=== PATIENT | male | born 1980 | race Caucasian/White ===

== ENCOUNTER 2022-10-31 08:27 | Outpatient (CLI) | payer OTHER, SELFPAY ==
[2022-10-31 09:08] LABS: Basophils Absolute Auto 0.1 K/mm3 (0.0-0.1); Basophils Percent Auto 0.7 % (0.2-1.2); Eosinophils Absolute Auto 0.1 K/mm3 (0-0.3); Eosinophils Percent Auto 0.9 % (0-4.4); Hematocrit 47.3 % (42.0-52.0); Hemoglobin 15.8 g/dL (14.0-18.0); Immature Granulocyte Absolute 0.01 K/mm3 (0.00-0.031); Immature Granulocyte Percent A 0.1 % (0-0.5); Immature Platelet Fraction Pct 21.5 % (0.9-11.2); Lymphocytes Percent Auto 15.8 % (18.3-44.2); Mean Corpuscular HGB Conc 33.4 g/dl (32-36); Mean Corpuscular Hemoglobin 29.1 pg (26-34); Mean Corpuscular Volume 87.1 fl (80-100); Mean Platelet Volume 14.1 fl (7.4-10.4); Monocytes Absolute Auto 0.6 K/mm3 (0.1-0.6); Monocytes Percent Auto 8.4 % (2.6-8.5); Neutrophils Absolute Auto 5.6 K/mm3 (1.3-6.7); Neutrophils Percent Auto 74.1 % (45.5-73.1); Platelet Count Result 122 k/mm3 (150-375); Red Blood Count 5.43 M/mm3 (4.6-6.20); Red Cell Distribution Width 13.2 % (11.5-14.5); White Blood Count 7.6 K/mm3 (4.5-10.0)
[2022-10-31 15:11] LABS: Alanine Aminotransferase 33 U/L (6-50); Albumin Level 4.2 g/dL (3.5-5.1); Alkaline Phosphatase 78 U/L (38-126); Amylase 71 U/L (30-110); Anion Gap 6 mmol/L (8-16); Aspartate Amino Transferase 26 U/L (17-59); Bilirubin,Total 0.9 mg/dL (0.2-1.3); Blood Urea Nitrogen 10 mg/dL (9-20); Calcium 8.3 mg/dL (8.4-10.2); Carbon Dioxide 28 mmol/L (22-30); Chloride 104 mmol/L (98-107); Estimated Glomerular Filt Rate > 60; Glucose 99 mg/dL (65-110); Lipase 60 U/L (23-300); Potassium 3.8 mmol/L (3.4-5.0); Sodium 138 mmol/L (137-145)
== END 2022-10-31 08:28 | disposition home or self-care (01) ==
PROVIDERS: PCP Family Medicine; Visit Provider Physician Assistant
DX: R10.13 Epigastric pain (principal); R10.11 Right upper quadrant pain
CPT/HCPCS: 36415; 80053; 82150; 83690; 85025; 85055

== ENCOUNTER → 2022-11-01 09:45 | Outpatient (CLI) | payer OTHER, SELFPAY ==
--- NOTE | ~2022-11-01 | US_ITS ---
Limited Abdominal Sonogram: Real-time sonographic imaging of the right upper quadrant was performed. Clinical History: Epigastric pain Findings: The liver appears normal with no evidence of mass lesion or bile duct dilatation. Main por hodan vein demonstrates normal direction of flow. The gallbladder is partially distended, and contains echogenic gallstone. Mild gallbladder wall thickening may be due to partial distention. The common bi le duct measures 5 mm. The visualized pancreas, aorta, and IVC are unremarkable. Impression: Cholelithiasis. Mild gallbladder wall thickening may be due to partial distention. Correlate clinically for acute cho lecystitis. Reviewed, dictated and finalized at location . Impression: Cholelithiasis. Mild gallbladder wall thickening may be due to partial distention. Correlate cl inically for acute cholecystitis.
== END ==
PROVIDERS: PCP Family Medicine; Visit Provider Physician Assistant
DX: R10.11 Right upper quadrant pain (principal); R10.13 Epigastric pain; K80.20 Calculus of gallbladder without cholecystitis without obstruction
CPT/HCPCS: 76705

== ENCOUNTER 2022-11-15 00:34 | Day surgery (SDC) | payer OTHER, SELFPAY ==
[2022-11-08 11:24] VITALS: BMI 42.5
--- NOTE | 2022-11-08 11:30 | PC.NURSE ---
Report to the Outpatient Waiting Room, entrance under the green pavilion located off [facility], at time 8:00 on date 11/15/22. Planned Procedure Time: 10:00. Time changes happen often and if your time is changed the preop area will call you the afternoon before. - You and your visitor will be asked to self-screen and do not enter if you have any COVID symptoms. - Only one visitor is requested with a max of two and NO children visitors are allowed at this time. - The patient visitor may be requested to leave or wait in car when not with patient due to distancing restrictions. - A mask is optional within the hospital at this time. Patients may have clear liquids (water, carbonated beverages, clear teas, apple juice) until 3 hours prior to surgery with a maximum of 20 ounces. - No food from midnight until time of surgery Take the following medications with a SIP of water the morning of surgery: SERTRALINE, ANTIBIOTIC IF STILL TAKING DO NOT STOP ANY OF YOUR OTHER PRESCRIPTION MEDICATIONS PRIOR TO SURGERY EXCEPT THE FOLLOWING Medications to discontinue per physician: N/A Date to take last dose: N/A Please no make-up, nail portuguese, hairspray, perfume, deodorant, or body powder the day of surgery. No jewelry (including any body piercings) or valuables the day of surgery, leave them at home. Please take a shower or bath the night before, or the morning of, surgery with an antibacterial soap (HIBICLENS). Wear comfortable, loose fitting clothing. - Jewelry must be removed prior to entering the operating room. Rings and piercings that are not removed may be cut off. - The hospital will not accept responsibility for valuables. - Please leave all valuables, including medications, at home the day of surgery. If you are going home after surgery, a licensed m48/m60 tank driver must drive you home. - NO public transportation without another adult if you receive anesthesia. - We recommend that an adult stay with you for 24 hours following discharge. - We also recommend that you do not drive, make important decision, drink alcoholic beverages, or take any drugs that were not prescribed by your health care provider for at least 24 hours after your discharge time. Follow any additional instructions given to you from your surgeon. If you or anyone in your household have experienced Covid symptoms in the past week, please notify your surgeon or the nurse liaison at the phone number below for possible testing. Telephone instructions given to EVER FLETCHER and asked if any additional questions and then verbalized understanding. Patient advised to call surgeon office or pre surgery nurse liaison [phone] if any additional questions.
--- NOTE | 2022-11-14 13:13 | WPDANESEPPF ---
Anes - Initial Pre Proc Eval Procedure: Operation Date: 11/15/22 10:00 Proposed Procedures p Laparoscopic Cholecystectomy, Davinci Assisted, Possible Open - Santana Carrillo DO Date/Time: 11/14/22 13:13 Surgeon: Santana Carrillo DO Pre Op Diagnosis: symptomatic cholelithiasis Patient Data Age: 41 Gender: M Height: 1.98 m Weight: 166.95 kg Allergies Allergy/AdvReac Type Severity Reaction Status Date / Time No Known Allergies Allergy Verified 11/15/22 08:29 Home Medications Medication Instructions Recorded Confirmed Type sildenafil 100 mg tablet (Viagra) 100 mg PO DAILY PRN sexual 01/11/22 11/08/22 Rx activity #30 tabs sertraline 50 mg tablet See Rx Instructions .Route 03/17/22 11/15/22 Rx .COMPLEX #90 tabs ciprofloxacin HCl 500 mg tablet 500 mg PO Q12H #14 tabs 11/02/22 11/15/22 Rx metronidazole 500 mg tablet 500 mg PO Q8H #21 tabs 11/02/22 11/15/22 Rx Patient hx anesthesia problems: none Family hx anesthesia problems: none Results Review: All pre-operative results and documents have been reviewed as part of the pre-operative evaluation. [facility] Past Medical History Medical History (Updated 11/14/22 @ 13:14 by Yossi Zepeda MD) Anxiety Erectile dysfunction Morbid obesity with BMI of 40.0-44.9, adult XIN (obstructive sleep apnea) Surgical History Surgical History History of tympanostomy Family History Family History Father Heart disease Hypertension Mother Breast cancer Pancreatic cancer Father Hypertension Social History Social History Smoking status: Never smoker Second hand tobacco smoke exposure: No Alcohol intake: never Substance use: never Substance use type: does not use Living arrangements: with family Occupation/Education: occupation Gender identity (if verbalized by the patient): Male Sexual Orientation (if Verbalized by the Patient): Straight or Heterosexual Spiritual care concerns: No Anes - Eval Final PreProcedure Day of Procedure 04/04/23 13:13 Patient weight: morbidly obese Heart: regular rate and rhythm Lungs: clear to auscultation and normal air movement Airway: Mallampati scale class II Neurological: alert and oriented Last oral intake: >/= 8 hours ASA classification: III Emergent: no Anesthetic plan: proceed Anesthesia type and monitoring: general ETT Results Review: All pre-operative results and documents have been reviewed as part of the pre-operative evaluation. Informed Consent: The patient's anesthetic plan and its attendant risks and benefits were discussed with the patient/family/POA. Questions were solicited and answers provided to the satisfaction of the patient/family/POA.
[2022-11-15] VITALS (9 sets, daily range): BP systolic 132–160; BP diastolic 72–96; PULSE 79–92; RESP 12–20; TEMP 36.1–36.3; O2SAT 97–100
[2022-11-15] MEDS: LACTATED RINGERS 1,000 ML 30 ML IV CONT ×2 (08:44→12:26)
[2022-11-15] MEDS: INDOCYANINE GREEN 25 MG VIAL WITH DILUENT 3.75 MG IV PUSH (08:50)
[2022-11-15] MEDS: ACETAMINOPHEN 500 MG TABLET 1000 MG PO (08:55)
[2022-11-15] MEDS: KETOROLAC 15 MG/ML VIAL (*BKC) IV PUSH (09:39)
--- NOTE | 2022-11-15 10:00 | WPDHPUPDATE1 ---
History and Physical Update Update Date/Time: 11/15/22 10:00 History and Physical has been reviewed, including an updated exam of the patient. There are NO changes in the patient's condition. Risks, benefits, and alternatives have been discussed and questions answered. Patient agrees to proceed with procedure.
[2022-11-15] MEDS: ceFAZolin 3 GM/D5W 100 ML 100 ML IVPB (10:28)
[2022-11-15] MEDS: BUPIVACAINE/EPINEPHRINE 0.5% 50 ML VIAL 30 ML INFILTRATE (11:12)
--- NOTE | 2022-11-15 12:29 | W.PM.PROC2 ---
Procedure Note - Detailed Date of Procedure 11/15/22 Pre-op Diagnosis symptomatic cholelithiasis Post-op Diagnosis Other (Chronic calculous cholecystitis, gallbladder hydrops) Procedure Performed 1. Laparoscopic cholecystectomy with cholangiography, da Ifeanyi assisted 2. Interpretation of cholangiography Surgeon Santana Carrillo, DO Anesthesia General and Local (0.5% bupivacaine) Indications This is a 41 year old man who presented with episode upper abdominal pain. A gallbladder ultrasound was obtained as an outpatient which showed evidence of cholelithiasis mild gallbladder wall thickening. The patient's symptoms had resolved and he was maintaining a low-fat diet. Discussions were made with the patient about treatment options and decision was made to proceed with laparoscopic cholecystectomy, da Ifeanyi assisted. Findings Robotic assisted laparoscopic cholecystectomy was performed. The gallbladder had evidence of chronic cholecystitis with gallbladder wall thickening and pericholecystic adhesions. The gallbladder was tense and difficult to grasp, therefore it was aspirated with a laparoscopic aspirating needle. About 100 mL clear mucus bile was aspirated. There were gallstones within the gallbladder. The cystic duct appeared normal in size. No other significant abnormalities were noted. The gallbladder was removed and sent to the lab for pathology. Indocyanine green was used to help identify the biliary anatomy. The gallbladder itself was not filling up with indocyanine green with the near infrared imaging, but once I dissected further down onto the neck of the gallbladder I was able to see the cystic duct and common bile duct with the imaging. Description of Procedure Procedure as well as risks, benefits, and alternatives were discussed with the patient. Written consent was obtained and placed in chart prior to procedure. 1.5 mL of indocyanine green was given intravenously in preop. Patient was brought back to surgical suite. He was placed supine on operating table. Time-out was done to confirm patient and procedure. He was then intubated by the anesthesia department. His abdomen was then prepped and draped in sterile fashion using chlorhexidine prep. 0.5% bupivacaine was infiltrated locally at the site of each port placement. An 8 mm incision was made just superior to the umbilicus and a 5 mm Optiview trocar was then advanced through the abdominal layers under direct visualization. Once inside the abdominal cavity, carbon dioxide insufflation was used to create a pneumoperitoneum. The camera was inserted and the abdomen was inspected. No mediated abnormalities were noted. The patient was placed in 10? reverse Trendelenburg position and rotated 10? to the left. Two 8 mm incisions were made in the right lateral abdomen and 2 8 mm trocars were inserted under direct visualization. A 12 mm incision was made in the left lateral abdomen and a 12 mm trocar was inserted under direct visualization. The 5 mm Optiview trocar was then removed and another 8 mm trocar was inserted in its place. The robotic arms were then brought up to the patient's bedside and secured to each port. The camera and instruments were inserted. I then moved over to the robotic consult to take control of the camera and instruments. The gallbladder was grasped at the fundus and retracted cephalad. The infundibulum of the gallbladder was then grasped and retracted laterally. Hook electrocautery was then used to carefully dissect around the neck of the gallbladder. The cystic duct was identified and a window was created around it using hook electrocautery. The cystic artery was also identified and a window was created behind it using hook electrocautery. Critical view of safety was identified visualizing the cystic duct running directly into the neck of the gallbladder and the cystic artery running directly into the wall the gallbladder. The camera view was switched to firefly m
--- NOTE | 2022-11-15 12:58 | SUR.PHASEI ---
1258: Simple mask removed.
[2022-11-15] MEDS: ONDANSETRON INJ 4 MG/2 ML VIAL IV PUSH (13:30)
[2022-11-15] MEDS: HALOPERIDOL LACTATE 5 MG/ML VIAL 1 MG IV PUSH (13:54)
[2022-11-15] MEDS: SCOPOLAMINE 1.5 MG PATCH TRANSDERM (13:55)
[2022-11-15] MEDS: oxyCODONE HCL (*CRX) 5 MG TAB IR PO (14:12)
== END 2022-11-15 14:56 | disposition home or self-care (01) ==
PROVIDERS: PCP Family Medicine; Visit Provider Surgery
PROC: 0FT44ZZ Resection of Gallbladder, Percutaneous Endoscopic Approach (ICD-10-PCS; CPT 47562; principal; 2022-11-15 10:00)
DX: K80.00 Calculus of gallbladder with acute cholecystitis without obstruction (principal); K82.1 Hydrops of gallbladder; G47.33 Obstructive sleep apnea (adult) (pediatric); F41.9 Anxiety disorder, unspecified; N52.9 Male erectile dysfunction, unspecified; E66.01 Morbid (severe) obesity due to excess calories; Z68.41 Body mass index [BMI] 40.0-44.9, adult
CPT/HCPCS: 47563; 74300; S2900; 36415; 86850; 86900; 86901; 88304; A9270; J0330; J0690; J1100; J1170; J1630; J1885; J2250; J2405; J2704; J2710; J3010; J7030; J7120

== ENCOUNTER 2023-05-22 07:00 | Outpatient (NON) | payer OTHER, SELFPAY | END 2023-05-22 07:01 | disposition home or self-care (01) | LOC: ANHLAB 05-23 12:08 | PROVIDERS: PCP Family Medicine; Visit Provider Nurse Practitioner | DX: L72.0 Epidermal cyst (principal) | CPT/HCPCS: 88304 ==

== ENCOUNTER 2023-08-16 17:54 | Emergency (ER) | payer OTHER, SELFPAY ==
[2023-08-16 18:03] VITALS: BP 147/89; PULSE 90; RESP 18; TEMP 36.9; O2SAT 100
--- NOTE | 2023-08-16 18:59 | ED.SKABFB ---
HPI - Skin/Abscess/Foreign Bdy General Chief complaint: Skin/Abscess/Foreign Body Stated complaint: bump on left lower leg Time Seen by Provider: 08/16/23 19:00 Source: patient Mode of arrival: ambulatory Limitations: no limitations History of Present Illness HPI narrative: 42-year-old male presents with complaint of reddened bump to left lower extremity for unknown period of time. Patient reports noticed today, on palpation area is tender. No other symptoms. Wanted to make sure he did not have infection. All systems reviewed and negative except as noted above. Related Data Allergies Allergy/AdvReac Type Severity Reaction Status Date / Time No Known Allergies Allergy Verified 08/16/23 18:04 Review of Systems Review of Systems: CONSTITUTIONAL: Denies fever, chills, or sweats. EYES: Denies visual changes, redness, or discharge. ENT: Denies rhinorrhea, congestion, sore throat, or otalgia. CARDIOVASCULAR: Denies chest pain, palpitations, or edema. RESPIRATORY: Denies cough or dyspnea. GASTROINTESTINAL: Denies abdominal pain, nausea, vomiting, or diarrhea. GENITOURINARY: Denies dysuria or hematuria. SKIN: Denies rash or itching. Reports red bump to left lower leg. MUSCULOSKELETAL: Denies back pain, joint pain, or myalgia. NEUROLOGIC: Denies headache, numbness, or weakness. PSYCHIATRIC: Denies anxiety or depression. All other systems reviewed are negative, except as documented in HPI. [facility] Past Medical History Medical History Anxiety Erectile dysfunction Morbid obesity with BMI of 40.0-44.9, adult XIN (obstructive sleep apnea) Surgical History Surgical History History of tympanostomy Hx laparoscopic cholecystectomy 11/15/22 Laparoscopic cholecystectomy with cholangiography, da Ifeanyi assisted. Interpretation of cholangiography Family History Family History Father Heart disease Hypertension Mother Breast cancer Pancreatic cancer Father Hypertension Social History Social History Smoking status: Never smoker Second hand tobacco smoke exposure: No Alcohol intake: never Substance use: never Substance use type: does not use Living arrangements: with family Occupation/Education: occupation Gender identity (if verbalized by the patient): Male Sexual Orientation (if Verbalized by the Patient): Straight or Heterosexual Spiritual care concerns: No Comments At time of signature, agree with nursing past medical, surgical, social and family history. There is no relevant family history pertinent to the presenting complaint. Exam Narrative: GENERAL: This is a well-nourished, well-developed patient, in no apparent distress. HEAD: normocephalic, atraumatic. EYES: PERRL. Sclera clear/white. Vision is grossly intact. EARS: External ears normal NOSE: External nose normal NECK: Neck supple, non-tender without lymphadenopathy, masses or thyromegaly. CARDIOVASCULAR: Regular rate and rhythm without murmurs, gallops, or rubs. RESPIRATORY: Clear to auscultation. Breath sounds equal bilaterally. No wheezes, rales, or rhonchi. SKIN: warm, Dry, intact with no suspicious rash, good texture and turgor. Erythematous raised area to lateral aspect left lower leg approximately 2 cm diameter, reddish purple in color. Tender on palpation. There is another 1 cm diameter of mild redness. No fluctuance. NEURO: awake, alert, and oriented to person, place and time. There were no obvious focal neurologic abnormalities. EXTREMITIES: No joint tenderness, effusion, or edema noted. Course Course Level of Care: Express Care Visit Vital Signs Vital signs: Vital Signs Temperature 36.9 C 08/16/23 18:03 Pulse Rate 90 08/16/23 18:03 Respiratory Rate 18 08/16/23 18:03 Blood
== END 2023-08-16 19:24 | disposition home or self-care (01) ==
PROVIDERS: Emergency Provider Nurse Practitioner Family; PCP Family Medicine
DX: S80.862A Insect bite (nonvenomous), left lower leg, initial encounter (principal); W57.XXXA Bitten or stung by nonvenomous insect and other nonvenomous arthropods, initial encounter; R03.0 Elevated blood-pressure reading, without diagnosis of hypertension; E66.01 Morbid (severe) obesity due to excess calories; Z68.41 Body mass index [BMI] 40.0-44.9, adult; F41.9 Anxiety disorder, unspecified
CPT/HCPCS: 99213; G0463

== ENCOUNTER 2023-12-24 19:10 | Emergency (ER) | payer OTHER, SELFPAY ==
--- NOTE | ~2023-12-24 | US_ITS ---
EXAMINATION: US venous doppler [facility] DATE: 12/24/2023 20:54 INDICATION: Left leg redness/swelling. TECHNIQUE: Grayscale images without and with compression and Doppler images of the bilateral lower ex tremity veins were obtained. COMPARISON: None FINDINGS: The right common femoral vein, profunda (deep) femoral vein, femoral vein, popliteal vein, peroneal v ein, posterior tibial veins, gastrocnemius vein, and greater saphenous vein are patent. The left common femoral vein, profunda (deep) femoral vein, femoral vein, popliteal vein, peroneal v ein, posterior tibial veins, gastrocnemius vein, and greater saphenous vein are patent. IMPRESSION: Multiple thrombosed lower extremity varicosities. No evidence of deep venous thrombosis. Reviewed, dictated and finalized at location K. IMPRESSION: Multiple thrombosed lower extremity varicosities. No evidence of deep venous th rombosis.
[2023-12-24 19:27] VITALS: BP 164/84; PULSE 87; RESP 16; TEMP 36.4; O2SAT 99
[2023-12-24 19:58] LABS: Basophils Absolute Auto 0.1 K/mm3 (0.0-0.1); Basophils Percent Auto 0.7 % (0.2-1.2); Eosinophils Absolute Auto 0.2 K/mm3 (0-0.3); Eosinophils Percent Auto 2.3 % (0-4.4); Hematocrit 45.2 % (42.0-52.0); Immature Granulocyte Absolute 0.02 K/mm3 (0.00-0.031); Immature Granulocyte Percent A 0.3 % (0-0.5); Lymphocytes Absolute Auto 1.96 K/mm3 (0.9-3.2); Lymphocytes Percent Auto 28.3 % (18.3-44.2); Mean Corpuscular HGB Conc 33.2 g/dl (32-36); Mean Corpuscular Hemoglobin 29.1 pg (26-34); Mean Corpuscular Volume 87.6 fl (80-100); Monocytes Absolute Auto 0.5 K/mm3 (0.1-0.6); Monocytes Percent Auto 6.5 % (2.6-8.5); Neutrophils Absolute Auto 4.3 K/mm3 (1.3-6.7); Neutrophils Percent Auto 61.9 % (45.5-73.1); Platelet Count Result 105 k/mm3 (150-375); Red Blood Count 5.16 M/mm3 (4.6-6.20); Red Cell Distribution Width 13.2 % (11.5-14.5); White Blood Count 6.9 K/mm3 (4.5-10.0)
[2023-12-24 20:10] LABS: INR 1.1; Prothrombin Time 14.4 Seconds (11.1-14.7)
[2023-12-24 20:11] LABS: Partial Thromboplastin Time 26.4 Seconds (22.3-36.8)
[2023-12-24 20:14] LABS: Anion Gap 8 mmol/L (4-12); Blood Urea Nitrogen 16 mg/dL (9-20); Calcium 8.9 mg/dL (8.4-10.2); Carbon Dioxide 26 mmol/L (22-30); Chloride 106 mmol/L (98-107); Estimated CRCL calculation 131 ml/min; Estimated Glomerular Filt Rate > 60; Glucose 99 mg/dL (65-110); Sodium 140 mmol/L (137-145)
--- NOTE | 2023-12-24 20:38 | ED.LOWEXIN ---
HPI - Extremity Injury (Lower) General Chief Complaint: Extremity Injury, Lower Stated Complaint: left leg pain, redness, swelling Time Seen by Provider: 12/24/23 20:02 History of Present Illness HPI Narrative: Patient is a 43-year-old male who presents ER with redness to his left calf. No some pain and redness yesterday but is progressed today. He has a history of superficial thrombophlebitis. He has never had a DVT. He does have known varicose veins lower extremities that are not more dilated than typical. No chest pain or shortness of breath. No fevers or chills or sweats. Related Data Allergies Allergy/AdvReac Type Severity Reaction Status Date / Time No Known Allergies Allergy Verified 12/24/23 19:11 Review of Systems Constitutional: Constitutional: Reports no additional constitutional complaints Cardiovascular: Cardiovascular: Reports no additional cardiovascular complaints Respiratory: Respiratory: Reports no additional respiratory complaints Integumentary/Breasts: Skin/Breast: Denies pruritus, Denies rash and Denies skin ulcer Comments: Redness PMFSH Past Medical History Medical History Anxiety Erectile dysfunction Morbid obesity with BMI of 40.0-44.9, adult XIN (obstructive sleep apnea) Surgical History Surgical History History of tympanostomy Hx laparoscopic cholecystectomy 11/15/22 Laparoscopic cholecystectomy with cholangiography, da Ifeanyi assisted. Interpretation of cholangiography Family History Family History Father Heart disease Hypertension Mother Breast cancer Pancreatic cancer Father Hypertension Social History Social History Smoking status: Never smoker Second hand tobacco smoke exposure: No Alcohol intake: never Substance use: never Substance use type: does not use Living arrangements: with family Occupation/Education: occupation Gender identity (if verbalized by the patient): Male Sexual Orientation (if Verbalized by the Patient): Straight or Heterosexual Spiritual care concerns: No Exam Narrative: GENERAL: Well-appearing, well-nourished, and in no acute distress. HEAD: Normocephalic, atraumatic. ENT: Mucous membranes moist. CHEST: Clear to auscultation. No respiratory distress. HEART: Regular rate and rhythm. Normal peripheral pulses. EXTREMITIES: Normal range of motion. Distended varicose veins lower extremities. Hot and tender left calf is erythematous as well. SKIN: Warm, dry, no rash. NEURO: Alert and oriented x3. PSYCH: Normal mood and affect. Course Course Emergency Course: Patient with extensive superficial thrombophlebitis. He is high risk for extending into DVT given previous superficial thrombophlebitis and the excessive length of the current clot. He will be started on Eliquis. Discussed bleeding precautions. He needs to call his PCP and arrange close follow-up. Patient verbalized understanding. Will also place on an antibiotic in case he has a cellulitis. Vital Signs Vital signs: Vital Signs Temperature 97.6 F 12/24/23 19:27 Pulse Rate 87 12/24/23 19:27 Respiratory Rate 16 12/24/23 19:27 Blood Pressure 164/84 H 12/24/23 19:27 Pulse Oximetry 99 12/24/23 19:27 Oxygen Delivery Room Air 12/24/23 19:27 Temperature 97.6 F 12/24/23 19:27 Pulse Rate 87 12/24/23 19:27 Respiratory Rate 16 12/24/23 19:27 Blood Pressure 164/84 H 12/24/23 19:27 Pulse Oximetry 99 12/24/23 19:27 Oxygen Delivery Room Air 12/24/23 19:27 MDM - Extremity Injury (Lower) Lab Data 12/24/23 19:51 12/24/23 19:51 Labs: Lab Results 12/24/23 Range/Units 19:51 WBC 6.9 (4.5-10.0) K/mm3 RBC 5.16 (4.6-6.20) M/mm3 Hgb 15.0 (14.0-18.0) g/dL H
[2023-12-24] MEDS: APIXABAN 5 MG TABLET 10 MG PO (21:46)
[2023-12-24 21:49] VITALS: BP 148/76; PULSE 78; RESP 19; O2SAT 97
== END 2023-12-24 21:50 | disposition home or self-care (01) ==
PROVIDERS: Emergency Medicine; Emergency Provider Emergency Medicine; PCP Family Medicine
DX: I80.02 Phlebitis and thrombophlebitis of superficial vessels of left lower extremity (principal); L03.116 Cellulitis of left lower limb; E66.01 Morbid (severe) obesity due to excess calories; Z68.41 Body mass index [BMI] 40.0-44.9, adult; G47.33 Obstructive sleep apnea (adult) (pediatric); Z90.49 Acquired absence of other specified parts of digestive tract
CPT/HCPCS: 36415; 80048; 85025; 85610; 85730; 93970; 99284; A9270

== ENCOUNTER 2024-02-11 10:02 | Outpatient (CLI) | payer OTHER, SELFPAY ==
--- NOTE | ~2024-02-11 | US_ITS ---
EXAMINATION: US venous doppler [facility] DATE: 02/11/2024 10:31 INDICATION: Embolism and thrombosis of a superficial vein. TECHNIQUE: Grayscale ultrasound images without and with compression and Doppler ultrasound images of the bilateral lower extremity veins were obtained. COMPARISON: Ultrasound 12/24/2023 FINDINGS: The visualized portions of right common femoral vein, profunda (deep) femoral vein, femoral vein, pop liteal vein, peroneal veins, posterior tibial veins, and greater saphenous vein outflow are patent. T here are varicose veins in the right calf. The visualized portions of left common femoral vein, profunda femoral vein, femoral vein, popliteal v ein, peroneal veins, posterior tibial veins, and greater saphenous vein outflow are patent. There is thrombus in superficial veins in the left calf. There are varicose veins in the left thigh. IMPRESSION: 1. Thrombosis of superficial veins in the left calf. 2. No deep venous thrombosis. Reviewed, dictated and finalized at location A.
== END 2024-02-11 10:03 ==
PROVIDERS: PCP Physician Assistant; Visit Provider Physician Assistant
DX: I82.812 Embolism and thrombosis of superficial veins of left lower extremity (principal)
CPT/HCPCS: 93970